=== PATIENT | female | born 1960 | race Caucasian/White ===

== ENCOUNTER 2016-07-18 08:22 | Day surgery (SDC) | payer OTHER ==
--- NOTE | ~2016-07-18 | EGD ---
EGD REPORT [facility] [address] [address] NAME: SONYA HERNANDEZ : 64 STATUS : REG [facility]#: [id number] AGE: 56 ADM/REG DATE : 07/18/16 MR#: [id number] REPORT SERV DATE: 07/18/16 DICTATED BY: JENNA PONCE DATE: 07/18/16 REPORT STATUS : Draft [facility] BY: [facility] DATE: 07/18/16 [facility] Patient Name: Sonya Hernandez Date of : 1960 Attending MD: JENNA PONCE MD Procedure Date No Time: 07/18/2016 Procedure: Colonoscopy Indications: Screening for colorectal malignant neoplasm, This is the patient's first colonoscopy Referring MD: ANUPAM LEE Medicines: See the Anesthesia note for documentation of the administered medications Complications: No immediate complications. Procedure: Pre-Anesthesia Assessment: - ASA Grade Assessment: II - A patient with mild systemic disease. After I obtained informed consent, the scope was passed under direct vision. Throughout the procedure, the patient's blood pressure, pulse, and oxygen saturations were monitored continuously. The CF [id number] was introduced through the anus and advanced to the terminal ileum, with identification of the appendiceal orifice and IC valve. The colonoscopy was performed without difficulty. The patient tolerated the procedure well. The quality of the bowel preparation was adequate. Findings: The terminal ileum appeared normal. Internal hemorrhoids were found during retroflexion and were small. Diverticula were found in the sigmoid colon. The perianal exam was abnormal. Findings include skin tags. Impression: - The examined portion of the ileum was normal. - Internal hemorrhoids. - Diverticulosis in the sigmoid colon. - Perianal skin tags found on perianal exam. Recommendation: - Patient has a contact number available for emergencies. The signs and symptoms of potential delayed complications were discussed with the patient. Return to normal activities tomorrow. Written discharge instructions were provided to the patient. - Regular diet. - Continue present medications. - Repeat colonoscopy in 10 years for screening purposes. EGD REPORT [address] [place]. [address] NAME: SONYA HERNANDEZ : [birth year] [place] [facility] [place] [id number] AGE: 56 ADM/REG DATE : 07/18/16 MR#: [id number] REPORT SERV DATE: 07/18/16 DICTATED BY: JENNA PONCE DATE: 07/18/16 REPORT STATUS : Draft TRANSCRIBED BY: [employer] DATE: 07/18/16 - Repeat colonoscopy in 10 years. IF develop symptoms like bleeding or diarrhea, or Family history of colon cancer or polyps before age 60, you could require sooner colonoscopy Procedure Code(s): --- Professional --- 52790, Colonoscopy, flexible, proximal to splenic flexure; diagnostic, with or without collection of specimen(s) by brushing or washing, with or without colon decompression (separate procedure) Diagnosis Code(s): --- Professional --- K64.8, Other hemorrhoids K57.30, Diverticulosis of large intestine without perforation or abscess without bleeding K64.4, Residual hemorrhoidal skin tags Z12.11, Encounter for screening for malignant neoplasm of colon CPT copyright 2013 [employer]. All rights reserved. The codes documented in this report are preliminary and upon ophthalmology assistant review may be revised to meet current compliance requirements. Jenna Ponce MD JENNA PONCE MD 07/18/2016 9:48 AM This report has been signed electronically. Number of Addenda: 0 Note Initiated On: 07/18/2016 9:20 AM Scope Withdrawal Time 0 hours 6 minutes 33 seconds [id number] [place] [id number]
[~2016-07-18 08:22] MED LIST: LEVOTHYROXIN150 MCG PO; MAPROTILINE PO; THIORIDAZINE PO
== END 2016-07-18 23:59 | disposition home or self-care (01) ==
LOC: DMU 08:22
PROVIDERS: Internal Medicine Gastroenterology
PROC: 0DJD8ZZ Inspection of Lower Intestinal Tract, Via Natural or Artificial Opening Endoscopic (ICD-10-PCS; principal; 2016-07-18 10:00)
DX: Z12.11 Encounter for screening for malignant neoplasm of colon (principal); K64.8 Other hemorrhoids; K57.30 Diverticulosis of large intestine without perforation or abscess without bleeding; K64.4 Residual hemorrhoidal skin tags; E03.9 Hypothyroidism, unspecified; E66.01 Morbid (severe) obesity due to excess calories; F32.9 Major depressive disorder, single episode, unspecified; F41.9 Anxiety disorder, unspecified; D64.9 Anemia, unspecified; Z88.0 Allergy status to penicillin; Z88.1 Allergy status to other antibiotic agents; Z88.5 Allergy status to narcotic agent; Z79.899 Other long term (current) drug therapy; Z98.890 Other specified postprocedural states; Z90.89 Acquired absence of other organs
CPT/HCPCS: 84703